=== PATIENT | female | born 1965 | race Caucasian/White ===

== ENCOUNTER 2018-09-29 11:03 | Observation (INO) ==
--- NOTE | 2018-09-29 12:27 | DR.H&P ---
H&P - History & Physical for Day of: H&P Date: 09/29/18 - Chief Complaint Chief Complaint: Chest discomfort with nausea and back pain - History of Present Illness History of Present Illness: The patient is a 53-year-old white female who presen ts to the clinic with complaint of chest discomfort. Complains of symptoms started on Saturday. States that the chest feels funny and she's had nausea with heartburn. States that pain does radiate through to her back above the bra line. States that she has been having increased fatigue. Denies increased swelling. States that she's had a stress test in 2016 that was unremarkable. Patient is continuing to take her aspirin. Is having increasing back and groin pain and contributes to the weather. Is agreeable for admission with possible transfer. - Past Medical History Past Medical History: Arthritis, Depression, Hypertension Additional Medical History: Cervical and Lumbar DDD S/P surgery, Hyperhidrosis, RLS, Neuropathy - Past Surgical History Surgical History: Ortho Surgery (Cervical and Lumbar Spine) - Social History Does patient currently use any type of tobacco product: Yes Have you used tobacco products in the last 12 months: Yes Type of Tobacco Use: Cigarettes Does any household member use tobacco: Yes Alcohol Use: None Drug Use: None - Review of Systems Constitutional: Weakness, Malaise Eyes: No Symptoms Reported ENT: No Symptoms Reported Respiratory: No Symptoms Reported Cardiovascular: Chest Pain, Orthopnea, Paroxysmal Noc. Dyspnea, Light Headedness Gastrointestinal: Nausea Genitourinary: No Symptoms Reported Musculoskeletal: No Symptoms Reported Skin: No Symptoms Reported Neurological: No Symptoms Reported Oriented: Normal Eyes: Normal Ear: Normal Nose: Normal Throat: Normal Respiratory: Clear Throughout Cardiovascular: Normal : Normal Auscultation: Bowel Sounds: Normal Palpation: Normal Tenderness: Normal Skin: Normal Musculoskeletal: Back:Thoracic, Back:Lumbar, Motor Deficit Psychiatric: Normal Mood Description: Calm Affect: Normal Speech Pattern: Clear - Assessment/Plan (1) Chest pain Status: Acute Plan: Cardiac enzymes, EKGs, Consider transfer for Cardiac Eval (2) Dyspnea Status: Acute Plan: Cardiac work up (3) Hypertension Status: Acute Plan: Monitor BP. Home meds. (4) Tobacco abuse Status: Acute Plan: Counseling for smoking cessation - Allergies Allergies/Adverse Reactions: Allergies Allergy/AdvReac Type Severity Reaction Status Date / Time No Known Drug Allergies Allergy Unverified 09/29/18 12:24
[2018-09-29] MEDS ORDERED: NITROSTAT SL PRN (12:42)
--- NOTE | 2018-09-29 13:04 | RAD ---
HISTORY: Chest pain, shortness of breath Study: Single-view chest Comparison: No priors Findings: There is evidence of lower cervical spine surgery with metallic plate and screws present. The trachea is midline. Heart size is upper normal with aortic uncoiling. Increased interstitial markings are present bilaterally without consolidation, hyperinflation, CHF, pleural fluid or pneumothorax. Osseous structures are intact. IMPRESSION: Hypertensive configuration. Increased interstitial markings bilaterally which may be chronic. No acute abnormality is seen. Reported By:
[2018-09-29 13:05] LABS: BASOPHILS # (AUTO) 0.1 X10^3/uL (0.0-0.1); BASOPHILS % (AUTO) 0.7 % (0.2-1.0); EOSINOPHILS # (AUTO) 0.1 x10^3/uL (0.0-0.2); HEMATOCRIT 36.6 % (36.0-47.0); HEMOGLOBIN 12.5 g/dL (12.0-16.0); LYMPHOCYTES # (AUTO) 1.4 X10^3/uL (1.3-2.9); LYMPHOCYTES % (AUTO) 16.8 % (21.0-51.0); MEAN CORPUSCULAR HEMOGLOBIN 28.8 pg (27.0-34.0); MEAN CORPUSCULAR VOLUME 84.7 fL (80.0-100.0); MEAN PLATELET VOLUME 8.2 fL (7.4-11.0); MONOCYTES # (AUTO) 0.6 x10^3/uL (0.3-0.8); MONOCYTES % (AUTO) 6.6 % (0.0-13.0); NEUTROPHILS # (AUTO) 6.4 x10^3/uL (2.2-4.8); NEUTROPHILS % (AUTO) 74.9 % (42.0-75.0); PLATELET COUNT 289 X10^3/uL (150.0-450.0); RED BLOOD COUNT 4.32 X10^6/uL (3.5-5.4); RED CELL DISTRIBUTION WIDTH 14.5 % (11.6-16.5); WHITE BLOOD COUNT 8.5 X10^3/uL (3.6-10.0)
[2018-09-29] MEDS ORDERED: ASPIRIN ONE (13:07)
[2018-09-29] MEDS: NS 1000 ML 1,000 ML IV SCH (13:15)
[2018-09-29] MEDS: ASPIRIN PO SCH (13:15)
[2018-09-29 13:20] LABS: ALANINE AMINOTRANSFERASE 37 Units/L (12-78); ALBUMIN 3.5 g/dL (3.4-5.0); ALKALINE PHOSPHATASE 134 Units/L (46-116); ASPARTATE AMINO TRANSFERASE 17 Units/L (15-37); BLOOD UREA NITROGEN 10 mg/dL (7-18); CALCIUM 8.6 mg/dL (8.5-10.1); CHLORIDE 105 mmol/L (98-107); COR NA(FOR HYPERGLY) 143 mmol/L (136-145); CREATININE 0.93 mg/dL (0.55-1.02); MAGNESIUM 1.8 mg/dL (1.7-2.9); SODIUM 142 mmol/L (136-145); TOTAL PROTEIN 7.4 g/dL (6.4-8.2); eGFR NON BLACK RACES > 60 (>60)
[2018-09-29 13:36] LABS: CKMB % 1.4 % (<4); CREATINE KINASE 71 Units/L (26-192); TROPONIN I < 0.02 ng/mL (0-1.5)
[2018-09-29 14:19] LABS: BILIRUBIN,URINE NEGATIVE (NEGATIVE); BLOOD/HEMOGLOBIN,URINE 1+ (NEGATIVE); GLUCOSE, URINE NEGATIVE (NEGATIVE); KETONES,URINE NEGATIVE (NEGATIVE); LEUKOCYTE ESTERASE ,URINE NEGATIVE (NEGATIVE); NITRITES,URINE NEGATIVE (NEGATIVE); PROTEIN,URINE NEGATIVE (NEGATIVE); UROBILINOGEN,URINE NORMAL (NORMAL)
[2018-09-29] MEDS ORDERED: ZOFRAN INJ 4 MG VIAL IVP PRN (14:29)
[2018-09-29 14:30] LABS: APPEARANCE,URINE CLEAR (CLEAR); BACTERIA,URINE NEGATIVE /HPF (NEGATIVE); COLOR,URINE YELLOW (YELLOW); RBC,URINE 0-2 /HPF (NONE SEEN); SQUAMOUS EPITHELIAL CELL,UR RARE /HPF (NEGATIVE)
[2018-09-29 15:55] VITALS: BMI 35.0
[2018-09-29] MEDS ORDERED: PREVNAR 13 IM ONE (15:55)
[2018-09-29] MEDS ORDERED: FLUVIRIN IM ONE (15:55)
[2018-09-29] MEDS ORDERED: ULTRAM PO PRN (16:37)
[2018-09-29] MEDS: MORPHINE SULFATE INJ 2 MG INJ IVP PRN ×2 (18:10→23:10)
[2018-09-29 18:48] LABS: CKMB % 1.6 % (<4); CREATINE KINASE 69 Units/L (26-192); CREATINE KINASE MB 1.1 ng/mL (0-4.0); TROPONIN I < 0.02 ng/mL (0-1.5)
[2018-09-29] MEDS: LOVENOX INJ 40 MG SYR SC SCH (21:59)
[2018-09-29] MEDS: NEURONTIN CAP 300 MG PO SCH (22:00)
[2018-09-29] MEDS: PERCOCET TAB 5/325 MG PO PRN (22:00)
[2018-09-29] MEDS: RESTORIL CAP 15 MG PO PRN (23:12)
[2018-09-30] MEDS: NS 1000 ML 1,000 ML IV SCH ×3 (01:03→14:53)
[2018-09-30 01:29] LABS: CKMB % 1.5 % (<4); CREATINE KINASE 65 Units/L (26-192); TROPONIN I < 0.02 ng/mL (0-1.5)
[2018-09-30 05:22] LABS: BASOPHILS # (AUTO) 0.1 X10^3/uL (0.0-0.1); BASOPHILS % (AUTO) 0.7 % (0.2-1.0); EOSINOPHILS # (AUTO) 0.2 x10^3/uL (0.0-0.2); EOSINOPHILS % (AUTO) 2.4 % (0.9-2.9); HEMATOCRIT 34.8 % (36.0-47.0); HEMOGLOBIN 11.6 g/dL (12.0-16.0); LYMPHOCYTES # (AUTO) 2.2 X10^3/uL (1.3-2.9); LYMPHOCYTES % (AUTO) 31.8 % (21.0-51.0); MEAN CORPUSCULAR HEMOGLOBIN 28.4 pg (27.0-34.0); MEAN CORPUSCULAR HGB CONC 33.3 g/dL (33.0-35.0); MEAN CORPUSCULAR VOLUME 85.2 fL (80.0-100.0); MEAN PLATELET VOLUME 8.5 fL (7.4-11.0); MONOCYTES # (AUTO) 0.6 x10^3/uL (0.3-0.8); NEUTROPHILS # (AUTO) 3.9 x10^3/uL (2.2-4.8); NEUTROPHILS % (AUTO) 56.1 % (42.0-75.0); PLATELET COUNT 264 X10^3/uL (150.0-450.0); RED BLOOD COUNT 4.08 X10^6/uL (3.5-5.4); RED CELL DISTRIBUTION WIDTH 14.7 % (11.6-16.5)
[2018-09-30] MEDS: MORPHINE SULFATE INJ 2 MG INJ IVP PRN ×3 (05:22→23:41)
[2018-09-30] MEDS: NEURONTIN CAP 300 MG PO SCH ×3 (05:23→21:41)
[2018-09-30 05:33] LABS: ALANINE AMINOTRANSFERASE 30 Units/L (12-78); ALBUMIN 2.8 g/dL (3.4-5.0); ALKALINE PHOSPHATASE 117 Units/L (46-116); ASPARTATE AMINO TRANSFERASE 14 Units/L (15-37); BLOOD UREA NITROGEN 12 mg/dL (7-18); CALCIUM 7.9 mg/dL (8.5-10.1); CARBON DIOXIDE 27.8 mmol/L (21-32); CHLORIDE 108 mmol/L (98-107); CHOL/HDL RATIO 4.1 (0.0-5.0); CHOLESTEROL 163 mg/dL (0-200); COR CA(FOR HYPOALB) 8.9 mg/dL (8.5-10.1); CREATININE 0.79 mg/dL (0.55-1.02); HDL CHOLESTEROL 40 mg/dL (40-60); SODIUM 142 mmol/L (136-145); TOTAL PROTEIN 6.2 g/dL (6.4-8.2); TRIGLYCERIDES 269 mg/dL (0-150); eGFR NON BLACK RACES > 60 (>60)
[2018-09-30] MEDS ORDERED: SYNTHROID 88 mcg TAB PO SCH (07:00)
[2018-09-30] MEDS: ASPIRIN PO SCH (08:55)
[2018-09-30] MEDS: TOPROL XL PO SCH (08:55)
[2018-09-30] MEDS: LOVENOX INJ 40 MG SYR SC SCH ×2 (08:55→21:40)
[2018-09-30] MEDS: CELEXA PO SCH (08:55)
[2018-09-30] MEDS: PERCOCET TAB 5/325 MG PO PRN (11:00)
[2018-09-30] MEDS ORDERED: NAPROSYN PO PRN (13:38)
--- NOTE | 2018-09-30 13:49 | PCM.PROG ---
Progress Note - Progress Note for Day of Date of Exam: 09/30/18 - Subjective Subjective: 53 WF ELÍASCT ADMIT ON 09/30 WITH CHEST PAIN AND EXERTIONAL SOB. PT HAD SERIAL CE AND EKGS SINCE ADMISSION. PT CO JAVED THIS AM. REVIEWED LABS AND EKG WITH PT, DISCUSSED RISK FACTORS AND NEED FOR CARDIAC CATH, PT AGREES TO BE TRANSFERRED TO TERTIARY CARE. WILL CONTINUE BP AND LIPID CONTROL, ASPIRIN THERAPY, CONTINUOUS CARDIAC MONITORING - Past Medical Family Social History Past Med/Fam/Surg Hx: No changes since H&P Allergies: Allergies No Known Drug Allergies Allergy (Unverified 09/29/18 12:24) - Review of Systems ROS: No change since H&P - Vital Signs and I&O's Vital Signs: Temperature 97.6 F Pulse Rate [Right Brachial] 62 Respiratory Rate 20 Blood Pressure [Right Arm] 149/67 O2 Sat by Pulse Oximetry 97 Intake and Output: Intake & Output 09/28/18 09/29/18 09/30/18 10/01/18 11:59 11:59 11:59 11:59 Intake Total 1999 Balance 1999 - Physical Exam Oriented: Normal Eyes: Normal Ear: Normal Nose: Normal Throat: Normal Respiratory: Diminished Cardiovascular: Normal : Normal Auscultation: Bowel Sounds: Normal Tenderness: Normal Skin: Normal Musculoskeletal: Back:Thoracic, Back:Lumbar, Motor Deficit Psychiatric: Normal Mood Description: Calm Affect: Normal Speech Pattern: Clear, Appropriate - Laboratory and Diagnostics Result Diagrams: 09/30/18 04:20 09/30/18 04:20 Labs: Laboratory WBC 7.0 X10^3/uL (3.6-10.0) 09/30/18 04:20 RBC 4.08 X10^6/uL (3.5-5.4) 09/30/18 04:20 Hgb 11.6 g/dL (12.0-16.0) L 09/30/18 04:20 Hct 34.8 % (36.0-47.0) L 09/30/18 04:20 MCV 85.2 fL (80.0-100.0) 09/30/18 04:20 MCH 28.4 pg (27.0-34.0) 09/30/18 04:20 MCHC 33.3 g/dL (33.0-35.0) 09/30/18 04:20 RDW 14.7 % (11.6-16.5) 09/30/18 04:20 Plt Count 264 X10^3/uL (150.0-450.0) 09/30/18 04:20 MPV 8.5 fL (7.4-11.0) 09/30/18 04:20 Neut % (Auto) 56.1 % (42.0-75.0) 09/30/18 04:20 Lymph % (Auto) 31.8 % (21.0-51.0) 09/30/18 04:20 Haines % (Auto) 9.0 % (0.0-13.0) 09/30/18 04:20 Eos % (Auto) 2.4 % (0.9-2.9) 09/30/18 04:20 Baso % (Auto) 0.7 % (0.2-1.0) 09/30/18 04:20 Neut # (Auto) 3.9 x10^3/uL (2.2-4.8) 09/30/18 04:20 Lymph # (Auto) 2.2 X10^3/uL (1.3-2.9) 09/30/18 04:20 Haines # (Auto) 0.6 x10^3/uL (0.3-0.8) 09/30/18 04:20 Eos # (Auto) 0.2 x10^3/uL (0.0-0.2) 09/30/18 04:20 Baso # (Auto) 0.1 X10^3/uL (0.0-0.1) 09/30/18 04:20 Absolute Nucleated RBC 0.0 /100WBC 09/30/18 04:20 INR Target Range - 09/29/18 12:54 INR 1.00 (0.8-1.3) 09/29/18 12:54 APTT 27.2 SECONDS (22.9-36.5) 09/29/18 12:54 PTT Comment - 09/29/18 12:54 Sodium 142 mmol/L (136-145) 09/30/18 04:20 Corrected Sodium TNP 09/30/18 04:20 Potassium 3.5 mmol/L (3.5-5.1) 09/30/18 04:20 Chloride 108 mmol/L (98-107) H 09/30/18 04:20 Carbon Dioxide 27.8 mmol/L (21-32) 09/30/18 04:20 BUN 12 mg/dL (7-18) 09/30/18 04:20 Creatinine 0.79 mg/dL (0.55-1.02) 09/30/18 04:20 Est GFR (MDRD) Af Amer > 60 (>60) 09/30/18 04:20 Est GFR (MDRD) Non-Af > 60 (>60) 09/30/18 04:20 Glucose 109 mg/dL (65-99) H 09/30/18 04:20 Calcium 7.9 mg/dL (8.5-10.1) L 09/30/18 04:20 Corrected Calcium 8.9 mg/dL (8.5-10.1) 09/30/18 04:20 Magnesium 1.8 mg/dL (1.7-2.9) 09/29/18 12:54 Total Bilirubin 0.30 mg/dL (0.2-1.0) 09/30/18 04:20 AST 14 Units/L (15-37) L 09/30/18 04:20 ALT 30 Units/L (12-78) 09/30/18 04:20 Alkaline Phosphatase 117 Units/L (46-116) H 09/30/18 04:20 Creatine Kinase 65 Units/L (26-192) 09/30/18 00:43 CK-MB (CK-2) 1.0 ng/mL (0-4.0) 09/30/18 00:43 CK/CKMB % Calc 1.5 % (<4) 09/30/18 00:43 Troponin I < 0.02 ng/mL (0-1.5) 09/30/18 00:43 Total Protein 6.2 g/dL (6.4-8.2) L 09/30/18 04:20 Albumin 2.8 g/dL (3.4-5.0) L 09/30/18 04:20 Globulin 3.4 g/dL (2.5-4.5) 09/30/18 04:20 Albumin/Globulin Ratio 0.8 Ratio (1.1-2.1) L 09/30/18 04:20 Triglycerides 269 mg/dL (0-150) H 09/30/18 04:20 Cholesterol 163 mg/dL (0-200) 09/30/18 04:20 LDL Cholesterol, Calc 69 mg/dL (0-100) 09/30/18 04:20 HDL Cholesterol 40 mg/dL (40-60) 09/30/18 04:20 Cholesterol/HDL Ratio 4.1 (0.0-5.0) 09/30/18 04:20 Specimen Type Clean catch urine 09/29/18 14:05 Urine Color Yellow (YELLOW) 09/29/18 14:05 Urine Appearance Clear (CLEAR) 09/29/18 14:05 Urine pH 6.0 (5.0 - 8.0) 09/29/18 14:05 Ur Specific [place] 1.010 (1.000-1.030) 09/29/18 14:05 Urine Protein Negative (NEGATIVE) 09/29/18 14:05 Urine Glucose (UA) Negative (NEGATIVE) 09/29/18 14:05 Urine Ketones Negative (NEGATIVE) 09/29/18 14:05 Urine Occult Blood 1+ (NEGATIVE) 09/29/18 14:05 Urine Nitrite Negative (NEGATIVE) 09/29/18 14:05 Urine Bilirubin Negative (NEGATIVE) 09/29/18 14:05 Urine Urobilinogen Normal (NORMAL) 09/29/18 14:05 Ur Leukocyte Esterase Negative (NEGATIVE) 09/29/18 14:05 Urine RBC 0-2 /HPF (NONE SEEN) 09/29/18 14:05 Urine WBC 0-2 /HPF (NONE SEEN) 09/29/18 14:05 Ur Squamous Epith Cells Rare /HPF (NEGATIVE) 09/29/18 14:05 Urine Bacteria Negative /HPF (NEGATIVE) 09/29/18 14:05 Ur Culture Indicated? No/not indicated 09/29/18 14:05 - Plan (1) Chest pain Status: Acute Plan: Cardiac enzymes, EKGs, BP AND LIPID CONTROL, PO ASPIRIN THERAPY. transfer for Cardiac Eval (2) Hyperlipidemia Status: Acute (3) Dyspnea Status: Acute Plan: Cardiac work up (4) Hypertension Status: Acute Plan: Monitor BP. Home meds. (5) Tobacco abuse Status: Acute Plan: Counseling for smoking cessation
[2018-09-30] MEDS: RESTORIL CAP 15 MG PO PRN (21:41)
[2018-10-01] MEDS: NS 1000 ML 1,000 ML IV SCH ×2 (02:00→04:35)
[2018-10-01 05:14] LABS: BASOPHILS % (AUTO) 0.7 % (0.2-1.0); EOSINOPHILS # (AUTO) 0.2 x10^3/uL (0.0-0.2); EOSINOPHILS % (AUTO) 3.2 % (0.9-2.9); HEMATOCRIT 34.8 % (36.0-47.0); HEMOGLOBIN 11.7 g/dL (12.0-16.0); LYMPHOCYTES # (AUTO) 1.9 X10^3/uL (1.3-2.9); LYMPHOCYTES % (AUTO) 30.8 % (21.0-51.0); MEAN CORPUSCULAR HEMOGLOBIN 28.6 pg (27.0-34.0); MEAN CORPUSCULAR HGB CONC 33.6 g/dL (33.0-35.0); MEAN PLATELET VOLUME 8.4 fL (7.4-11.0); MONOCYTES # (AUTO) 0.6 x10^3/uL (0.3-0.8); MONOCYTES % (AUTO) 9.4 % (0.0-13.0); NEUTROPHILS # (AUTO) 3.5 x10^3/uL (2.2-4.8); NEUTROPHILS % (AUTO) 55.9 % (42.0-75.0); PLATELET COUNT 251 X10^3/uL (150.0-450.0); RED BLOOD COUNT 4.09 X10^6/uL (3.5-5.4); RED CELL DISTRIBUTION WIDTH 14.3 % (11.6-16.5); WHITE BLOOD COUNT 6.2 X10^3/uL (3.6-10.0)
[2018-10-01 05:32] LABS: ALANINE AMINOTRANSFERASE 32 Units/L (12-78); ALKALINE PHOSPHATASE 117 Units/L (46-116); ASPARTATE AMINO TRANSFERASE 18 Units/L (15-37); BLOOD UREA NITROGEN 11 mg/dL (7-18); CALCIUM 8.1 mg/dL (8.5-10.1); CARBON DIOXIDE 28.5 mmol/L (21-32); CHLORIDE 108 mmol/L (98-107); COR CA(FOR HYPOALB) 8.9 mg/dL (8.5-10.1); CREATININE 0.65 mg/dL (0.55-1.02); SODIUM 141 mmol/L (136-145); TOTAL PROTEIN 6.5 g/dL (6.4-8.2); eGFR NON BLACK RACES > 60 (>60)
[2018-10-01] MEDS: NEURONTIN CAP 300 MG PO SCH ×2 (05:53→14:00)
[2018-10-01] MEDS: ASPIRIN PO SCH (08:29)
[2018-10-01] MEDS: TOPROL XL PO SCH (08:30)
[2018-10-01] MEDS: LOVENOX INJ 40 MG SYR SC SCH (08:30)
[2018-10-01] MEDS: CELEXA PO SCH (08:30)
[2018-10-01] MEDS: MORPHINE SULFATE INJ 2 MG INJ IVP PRN ×2 (08:31→12:32)
[2018-10-01] MEDS ORDERED: FENTANYL INJ 100 mcg ONE (12:33)
[2018-10-01] MEDS ORDERED: XYLOCAINE 1 % (PLAIN) ONE (12:34)
[2018-10-01 16:26] VITALS: BP 158/74
== END 2018-10-01 16:00 | disposition short-term general hospital (02) ==
LOC: MED/SURG
PROVIDERS: ADMIT Internal Medicine; ATTEND Internal Medicine
CPT/HCPCS: 36415; 71010; 71045; 80053; 80061; 81001; 82550; 82553; 83735; 84484; 85025; 85610; 85730; 90686; 93005; 93010; 94760; 96367; 96372; 96374; 90670; G0378; J1650; J2270; J3010; J7030